=== PATIENT | male | born 1960 | race Caucasian/White ===

== ENCOUNTER 2018-12-29 05:52 | Observation (INO) | payer BC ==
[2018-12-29] MEDS ORDERED: NS 0.9% 1000 ML** 1,000 ML IV ONE (06:21)
[2018-12-29] MEDS ORDERED: Ketorolac INJ* 30 MG/ML 1 ML VIAL IV ONE (06:21)
[2018-12-29] MEDS ORDERED: Ondansetron INJ* 2 MG/ML VIAL IV ONE (06:21)
--- NOTE | 2018-12-29 06:25 | ED ---
GI/ HPI - HPI Summary HPI Summary: 58 year old M presenting to [facility] complains of rash, swelling, and erythema in his right groin extending to his right thigh and groin area with associated groin pain, fever, nausea and vomiting, mild abdominal pain since 24 hours ago. Patient denies diarrhea, dysuria. The patient rates the pain 8/10 in severity. Symptoms aggravated by nothing. Symptoms alleviated by nothing. Patient states he has Stage IV metastatic prostate cancer. - History of Current Complaint Chief Complaint: EDRashSkinAbscess Time Seen by Provider: 12/29/18 06:15 Stated Complaint: INFECTION PER PT Hx Obtained From: Patient Onset/Duration: Started Hours Ago - 24, Still Present Timing: Constant Severity: Severe Current Severity: Severe Pain Intensity: 8 Associated Signs and Symptoms: Positive: Negative - diarrhea, dysuria, Other: - groin pain, fever, nausea and vomiting, mild abdominal pain Aggravating Factor(s): Nothing Alleviating Factor(s): Nothing - Allergy/Home Medications Allergies/Adverse Reactions: Allergies Allergy/AdvReac Type Severity Reaction Status Date / Time No Known Allergies Allergy Verified 12/29/18 06:09 Home Medications: Home Medications Abiraterone Acetate 250 mg PO DAILY 12/29/18 [History Confirmed 12/29/18] Lisinopril 40 mg PO DAILY 12/29/18 [History Confirmed 12/29/18] amLODIPine TAB* [Norvasc 5 mg TAB*] 5 mg PO DAILY 12/29/18 [History Confirmed ] predniSONE [Prednisone 5 MG TAB] 5 mg PO DAILY 12/29/18 [History Confirmed 12/29] PMH/Surg Hx/FS Hx/Imm Hx Endocrine/Hematology History: Denies: Hx Diabetes Cardiovascular History: Reports: Hx Hypertension - ON MEDS Denies: Hx Pacemaker/ICD Respiratory History: Reports: Hx Asthma - childhood - none now Denies: Hx Chronic Bronchitis, Hx Chronic Obstructive Pulmonary Disease (COPD ), Hx Cystic Fibrosis, Hx Lung Cancer, Hx Pleural Effusion, Hx Pneumonia, Hx Pulmonary Edema, Hx Pulmonary Embolism, Hx Seasonal Allergies, Hx Sleep Apnea History: Denies: Hx Dialysis, Hx Renal Disease Musculoskeletal History: Reports: Hx Arthritis - thumbs, Hx Back Problems - currently, Hx Bursitis - in knee - resolved Sensory History: Reports: Hx Contacts or Glasses - contacts, Hx Vision Problem Denies: Hx Hearing Aid Opthamlomology History: Reports: Hx Contacts or Glasses - contacts, Hx Vision Problem Neurological History: Reports: Other Neuro Impairments/Disorders - admission for transient global amnesia Psychiatric History: Denies: Hx Panic Disorder - Cancer History Cancer Type, Location and Year: PROSTATE Hx Chemotherapy: No Hx Radiation Therapy: No - Surgical History Surgery Procedure, Year, and Place: Prostatectomy 02/2017 Hx Anesthesia Reactions: No - Immunization History Date of Tetanus Vaccine: Unk Date of Influenza Vaccine: Fall 2012 Infectious Disease History: No Infectious Disease History: Denies: Hx Tuberculosis, Traveled Outside the [place] in Last 30 Days - Family History Known Family History: Positive: Other - NEG: Fhx malignant anesthesia reaction - Social History Alcohol Use: Weekly Hx Substance Use: No Substance Use Type: Reports: None Hx Tobacco Use: Yes Smoking Status (MU): Former Smoker Type: Cigarettes Amount Used/How Often: 1 PPD Length of Time of Smoking/Using Tobacco: 20 Have You Smoked in the Last Year: No Review of Systems Positive: Fever Positive: Abdominal Pain, Vomiting, Nausea. Negative: Diarrhea Positive: pain - groin, other - swelling in his right groin. Negative: dysuria Positive: Rash, Other - erythema in his right groin All Other Systems Reviewed And Are Negative: Yes Physical Exam - Summary Physical Exam Summary: General: Well-developed, Well-nourished MALE. No acute distress. HEENT: Normocephalic, Atraumatic. Eyes: Conjuctiva normal, PERRL. Ears: TMs within normal limits. Nares: (-) discharge, (-) erythema. Oropharynx: Clear, mucous membranes moist, (-) exudates. Neck: Soft, FROM, (-) lymphadenopathy, (-) thyromegaly, (-) JVD. Cardiovascular: Normal sinus rhythm, (-) murmur. Lungs: Clear to auscultation bilaterally (-) wheezes, (-) rales, (-) rhonchi. Abdomen: Soft, non-tender, non-distended, (-) organomegaly, normal bowel sounds. Back: (-) CVA tenderness Extremities: No edema. Skin: Warm, dry, (-) rash. Neuro: Alert and oriented x3, no focal deficits. Psychiatric: Mood normal, affect normal. exam: Patient has erythematous, swollen area in R groin extending to his upper thigh and into his groin area Male Genitalia Exam: Normal external male genitalia, penis without discharge, normal appearing meatus, testes without tenderness, no mass. Triage Information Reviewed: Yes Vital Signs On Initial Exam: Initial Vitals Temp Pulse Resp BP Pulse Ox 99.5 F 101 18 145/94 97 12/29/18 05:53 12/29/18 05:53 12/29/18 05:53 12/29/18 05:53 12/29/18 05:53 Vital Signs Reviewed: Yes Diagnostics - Vital Signs Vital Signs Temp Pulse Resp BP Pulse Ox 12/29/18 05:53 99.5 F 101 18 145/94 97 - Laboratory Result Diagrams: 12/29/18 06:48 12/29/18 06:48 Lab Statement: Any lab studies that have been ordered have been reviewed, and results considered in the medical decision making process. GIGU Course/Dx - Course Course Of Treatment: 58 year old M presenting to [facility] complains of rash in his right groin extending to his right thigh and groin area with associated groin pain, fever, nausea and vomiting, mild abdominal pain since 24 hours ago. Patient denies diarrhea, dysuria. Physical exam findings: Patient has erythematous, swollen area in R groin extending to his upper thigh and into his groin area. In the ED course, the patient was given Toradol 15 mg IV, Zofran 4 mg IV, and normal saline fluids 1 L IV. The patient will be signed out to Dr. Diane upon shift change at 07:00 on 12/29/18, awaiting lab results and CT Abd/Pel , and pending disposition. - Diagnoses Provider Diagnoses: Cellulitis of groin Discharge ED - Sign-Out/Discharge Documenting (check all that apply): Sign-Out Patient Signing out patient TO: Wyatt iDane - awaiting lab results and CT Abd/Pel, and pending disposition Patient Received Moderate/Deep Sedation with Procedure: No - Discharge Plan Condition: Fair Disposition: ADMITTED TO [facility] - Billing Disposition and Condition Condition: FAIR Disposition: Admitted to [facility] - Attestation Statements Document Initiated by Scribe: Yes Documenting Scribe: Marilyn Woodruff Provider For Whom Scribe is Documenting (Include Credential): Jamila Silva MD Scribe Attestation: Marilyn Fox, scribed for Jamila Silva MD on 12/29/18 at 2142. Scribe Documentation Reviewed: Yes Provider Attestation: The documentation as recorded by the scribe, Marilyn Woodruff accurately reflects the service I personally performed and the decisions made by me, Jamila Sliva MD Status of Scribe Document: Viewed
[2018-12-29 07:02] LABS: ABS Lymphocytes 0.3 10^3/ul (1.0-4.8); ABS Monocytes 0.5 10^3/ul (0-0.8); ABS Neutrophils 13.9 10^3/ul (1.5-7.7); Eosinophil % 0.1 %; Hematocrit 33 % (42-52); Hemoglobin 11.3 g/dL (14.0-18.0); Lymphocyte % 2.3 %; Mean Corpuscular HGB Conc 35 g/dL (31-36); Mean Corpuscular Hemoglobin 32 pg (27-31); Mean Corpuscular Volume 92 fL (80-94); Mean Platelet Volume 8.3 fL (7.4-10.4); Nucleated Red Blood Cells % 0.1; Platelet Count 220 10^3/uL (150-450); Red Blood Count 3.55 10^6 /uL (4.18-5.48); Red Cell Distribution Width 14 % (10-15); White Blood Count 14.9 10^3/uL (3.5-10.8)
--- NOTE | 2018-12-29 07:06 | ED ---
Progress - Progress Note Progress Note: This patient is a 58-yo M with a hx of metastatic prostate cancer presenting to [facility] with rash of the right groin. Patient is a sign-out from Dr. Jamila Silva to Dr. Wyatt Diane at 0700 on 12/29/18 at shift change pending lab results and CT A/P. Patient reports going to bed on 12/27/18 and waking up with the sudden pain and rash on 12/28/18. Patient had a prostatectomy in 02/2017 in [place] for his prostate cancer. He also had radiation therapy and chemotherapy. The last radiation therapy was "a while ago" and the last chemotherapy was a year ago. For his chemotherapy treatment patient was given Lupron, Zytiga, and Prednisone. Patient does not use tobacco and substances but does use alcohol. He reports a PMHx of HTN but no DM. Physical Exam Findings VITAL SIGNS: Reviewed. GENERAL: Patient is a well-developed and nourished male who is lying comfortable in the stretcher. Patient is not in any acute respiratory distress. HEAD AND FACE: Normocephalic and atraumatic. EYES: PERRLA, EOMI x 2, No injected conjunctiva. EARS: Hearing grossly intact. Ear canals and tympanic membranes are WNL. MOUTH: Oropharynx within normal limits. NECK: Supple, trachea is midline, no adenopathy, no JVD. CHEST: Symmetric, no tenderness at palpation. LUNGS: Clear to auscultation bilaterally. No wheezing or crackles. CVS: RRR, S1 and S2 present, no murmurs or gallops appreciated. ABDOMEN: Soft, non-tender. No signs of distention. Positive bowel sounds. No rebound, no guarding, and no masses palpated. No abdominal bruit or pulsations. EXTREMITIES: FROM in all major joints, no edema, no cyanosis or clubbing. NEURO: Alert and oriented x 3. No acute neurological deficits. Speech is normal. SKIN: Dry and warm. : Diffuse erythema in the pelvic area, groin, foreskin, and skin on testicles. Light swelling in the right pelvis. - Results/Orders Results/Orders: CT A/P revealed Soft tissue and subcutaneous edema in the right inguinal region with mildly enlarged lymph nodes suspicious for cellulitis. No definite drainable fluid collections are noted. Normal appendix is identified. No other masses or fluid collections are noted. No definite evidence of external iliac vein thrombus is noted. Dr. Diane has reviewed this radiology report. Course/Dx - Course Course Of Treatment: This patient is a 58-yo M with a hx of metastatic prostate cancer presenting to [facility] with rash of the groin. Patient is a sign-out from Dr. Jamila Silva to Dr. Wyatt Diane at 0700 on 12/29/18 at shift change pending lab results and CT A/P. . This patient is a 58-year-old male signed out by Dr. Silva at shift change. She reports that the patient is complaining of swelling and redness in the groin area the right more than the left. Initially she gave normal saline total Zofran and I will follow work-up. I went and examined the patient and saw the patient has this erythematous area to the pelvic area bilaterally with a slight swelling in the right side and is tender. It extends to the skin of the penis and testicles. He has an uncircumcised penis. I started the patient on Zosyn. I added blood cultures before the antibiotics. Blood work without any significant abnormality except for WBCs of 14.9, hemoglobin 11.3, hematocrit 33, sodium 133, potassium 3.2, glucose 114, magnesium 1.7, CRP of 204. In the ED course the patient was given potassium chloride and magnesium. Abdominopelvic CT impression: Soft tissue and subcutaneous edema in the right inguinal region with mildly enlarged lymph nodes suspicious for cellulitis. No definite drainable fluid collection noted. Normal appendix is identified. No other mass of fluid collections are noted. No definite evidence of external iliac thrombosis noted. This patient continues to be stable. The patient proceeded to have IV fluids. At this point I discussed my physical exam findings and test results with Dr. Wheat who accepted the patient for admission. - Diagnoses Provider Diagnoses: Cellulitis of groin - Provider Notifications Discussed Care Of Patient With: Pasquale Wheat Time Discussed With Above Provider: 09:30 Instructed by Provider To: Admit As Inpatient - Discussed patient case with Dr. Wheat, oncologist, who accepted the patient for [place] [facility] Discharge ED - Sign-Out/Discharge Documenting (check all that apply): Patient Departure - Admit, Receiving Sign- Out Receiving patient FROM: Jamila Lemonley Patient Received Moderate/Deep Sedation with Procedure: No - Discharge Plan Condition: Fair Disposition: ADMITTED TO [facility] - Billing Disposition and Condition Condition: FAIR Disposition: Admitted to [facility] - Attestation Statements Document Initiated by Scribe: Yes Documenting Scribe: Oneil Vázquez Provider For Whom Scribe is Documenting (Include Credential): Wyatt Diane MD Scribe Attestation: I, Oneil Vázquez, scribed for Wyatt Diane MD on 12/30/18 at 1833. Scribe Documentation Reviewed: Yes Provider Attestation: The documentation as recorded by the scribe, Oneil Vázquez accurately reflects the service I personally performed and the decisions made by me, Wyatt Diane MD Status of Scribe Document: Viewed
[2018-12-29] MEDS ORDERED: Piperacillin/Tazobac ADVAN(*) 3.375 GM in NS 0.9% 100 ML* 100 ML IVPB ONE ×2 (07:23→10:07)
[2018-12-29 07:25] LABS: Albumin 3.7 g/dL (3.2-5.2); Albumin/Globulin Ratio 1.5 (1-3); BUN/Creatinine Ratio 14.6 (8-20); C Reactive Protein 204.21 mg/L (<8.01); Calcium 8.9 mg/dL (8.6-10.3); EGFR African American 106.6 (>60); EGFR Non-African American 88.1 (>60); Globulin 2.4 g/dL (2-4); Potassium 3.2 mmol/L (3.5-5.0); Total Bilirubin 0.6 mg/dL (0.2-1.0); Total Protein 6.1 g/dL (6.4-8.9)
[2018-12-29] MEDS ORDERED: Acetaminophen TAB* 325 MG PO ONE (07:41)
[2018-12-29] MEDS ORDERED: Iohexol 300* (CONTRAST) 10 ML SDV IV ONE ×2 (07:51→08:06)
[2018-12-29 08:20] LABS: Urine Appearance Clear; Urine Bacteria Absent (Absent); Urine Bilirubin Negative (Negative); Urine Blood Negative (Negative); Urine Color Yellow; Urine Glucose Negative (Negative); Urine Ketones Trace (Negative); Urine Nitrite Negative (Negative); Urine Protein 1+(30 mg/dL) (Negative); Urine Red Blood Cell Trace(0-2/hpf) (Absent); Urine Specific Gravity 1.017 (1.010-1.030); Urine Squamous Epithelial Cell Present (Absent); Urine Urobilinogen Negative (Negative); Urine White Blood Cell Trace(0-5/hpf) (Absent)
[2018-12-29] MEDS ORDERED: Potassium Chlor TAB* 20 MEQ TAB.ER PO ONE (08:27)
[2018-12-29 09:30] LABS: Magnesium 1.7 mg/dL (1.9-2.7)
[2018-12-29] MEDS ORDERED: Magnesium Oxide TAB* 400 MG PO ONE (09:33)
[2018-12-29] MEDS ORDERED: Ondansetron TAB* 4 MG PO PRN (10:09)
[2018-12-29] MEDS ORDERED: oxyCODONE TAB* 5 MG TAB PO PRN (10:09)
[2018-12-29] MEDS ORDERED: Zolpidem TAB* 10 MG PO PRN (10:10)
[2018-12-29] MEDS ORDERED: NS 0.9% 1000 ML** 1,000 ML IV SCH (10:15)
[2018-12-29] MEDS ORDERED: Zosyn per Pharmacy* NOTE FOLLOW UP SCH (11:00)
[2018-12-29] MEDS: ZOSYN 3.375 GM Q8H per EXTENDED INFUSION IVPB SCH ×4 (13:15→19:47)
[2018-12-29] MEDS: Enoxaparin(*) 40 MG/0.4 ML SYR SUBCUT SCH (13:16)
[2018-12-29] MEDS: Acetaminophen TAB* 325 MG PO PRN ×2 (13:26→19:47)
[2018-12-29] MEDS: Loperamide CAP* 2 MG PO PRN ×2 (15:30→19:22)
[2018-12-29] MEDS ORDERED: predniSONE TAB* 5 MG PO SCH (18:30)
[2018-12-29] MEDS ORDERED: Melatonin 3 MG TAB PO PRN (20:27)
[2018-12-30] MEDS: Loperamide CAP* 2 MG PO PRN ×4 (03:27→19:54)
[2018-12-30] MEDS: ZOSYN 3.375 GM Q8H per EXTENDED INFUSION IVPB SCH ×6 (03:31→19:48)
[2018-12-30 06:23] LABS: ABS Lymphocytes 0.3 10^3/ul (1.0-4.8); ABS Monocytes 0.4 10^3/ul (0-0.8); ABS Neutrophils 7.5 10^3/ul (1.5-7.7); Eosinophil % 0.6 %; Hematocrit 29 % (42-52); Hemoglobin 9.9 g/dL (14.0-18.0); Lymphocyte % 4.1 %; Mean Corpuscular HGB Conc 34 g/dL (31-36); Mean Corpuscular Hemoglobin 31 pg (27-31); Mean Corpuscular Volume 92 fL (80-94); Mean Platelet Volume 8.4 fL (7.4-10.4); Platelet Count 182 10^3/uL (150-450); Red Blood Count 3.17 10^6 /uL (4.18-5.48); Red Cell Distribution Width 14 % (10-15); White Blood Count 8.3 10^3/uL (3.5-10.8)
[2018-12-30 06:37] LABS: Albumin 3.1 g/dL (3.2-5.2); Anion Gap 6 mmol/L (2-11); BUN/Creatinine Ratio 13.4 (8-20); Blood Urea Nitrogen 11 mg/dL (6-24); CO2 Carbon Dioxide 24 mmol/L (22-32); Calcium 8.6 mg/dL (8.6-10.3); Chloride 108 mmol/L (101-111); EGFR African American 117.2 (>60); EGFR Non-African American 96.8 (>60); Globulin 2.4 g/dL (2-4); Glucose 105 mg/dL (70-100); Magnesium 1.9 mg/dL (1.9-2.7); Potassium 3.4 mmol/L (3.5-5.0); Sodium 138 mmol/L (135-145); Total Protein 5.5 g/dL (6.4-8.9)
[2018-12-30 06:38] LABS: ALT 13 U/L (7-52); AST 17 U/L (13-39); Albumin/Globulin Ratio 1.3 (1-3); Alkaline Phosphatase 63 U/L (34-104)
[2018-12-30] MEDS: predniSONE TAB* 5 MG PO SCH ×2 (08:04→17:01)
[2018-12-30 08:58] LABS: Total Iron Binding Capacity 272 mcg/dL (250-450); Transferrin 194 mg/dL (203-362)
[2018-12-30] MEDS ORDERED: amLODIPine TAB* 5 MG PO SCH (09:00)
[2018-12-30 09:01] LABS: % Iron Saturation 7 % (15-55); Iron < 20 ug/dL (50-212)
[2018-12-30 09:19] LABS: Ferritin 260.9 ng/mL (24-336)
[2018-12-30] MEDS ORDERED: NS 0.9% 1000 ML** 1,000 ML IV SCH (09:33)
--- NOTE | 2018-12-30 09:33 | PN ---
Progress Note - Progress Note Date of Service: 12/30/18 SOAP: Subjective: [Feeling slightly better today and believes the area is less red. He still has a lot of discomfort with walking. Appetite is slowly returning. Having diarrhea and feels bloated. Denies nausea. No melena.] Objective: [ Vital Signs: Temp Pulse Resp BP Pulse Ox 99.3 F 81 16 137/76 97 12/30/18 07:25 12/30/18 07:25 12/30/18 08:03 12/30/18 07:25 12/30/18 07:25 Abiraterone Acetate (Zytiga (Nf)) 250 mg PO DAILY@1100 [facility] Acetaminophen (Tylenol Tab*) 650 mg PO Q6H PRN PRN Reason: MILD PAIN or TEMP > 100.4 Last Admin: 12/29/18 19:47 Dose: 650 mg Amlodipine Besylate (Norvasc Tab*) 5 mg PO DAILY [facility] Last Admin: 12/30/18 08:46 Dose: Not Given Enoxaparin Sodium (Lovenox(*)) 40 mg SUBCUT Q24H [facility] Last Admin: 12/29/18 13:16 Dose: 40 mg Sodium Chloride (Ns 0.9% 1000 Ml) 1,000 mls @ 100 mls/hr IV PER RATE [facility] Last Admin: 12/29/18 13:15 Dose: 100 mls/hr Piperacillin Sod/Tazobactam (Sod 3.375 gm/ Sodium Chloride) 100 mls @ 25 mls/ hr IVPB Q8H [facility] Last Admin: 12/30/18 03:31 Dose: 25 mls/hr Loperamide HCl (Imodium Cap*) 2 mg PO .SEE DIRECTIONS PRN PRN Reason: DIARRHEA Last Admin: 12/30/18 08:03 Dose: 2 mg Melatonin (Melatonin) 3 mg PO BEDTIME PRN PRN Reason: SLEEP Ondansetron HCl (Zofran Tab*) 4 mg PO Q6H PRN PRN Reason: NAUSEA Oxycodone HCl (Roxycodone Tab*) 5 mg PO Q4H PRN PRN Reason: PAIN - MODERATE Pharmacy Consult (Zosyn Per Pharmacy*) 1 note FOLLOW UP .ZOSYN PER PHARMACY [facility] Prednisone (Deltasone Tab*) 5 mg PO BID WITH MEALS [facility] Last Admin: 12/30/18 08:04 Dose: 5 mg Zolpidem Tartrate (Ambien Tab*) 10 mg PO BEDTIME PRN PRN Reason: INSOMNIA Laboratory Results - last 24 hr 12/30/18 12/30/18 05:53 05:53 WBC 8.3 RBC 3.17 L Hgb 9.9 L Hct 29 L MCV 92 MCH 31 MCHC 34 RDW 14 Plt Count 182 MPV 8.4 Neut % (Auto) 90.7 Lymph % (Auto) 4.1 [place] % (Auto) 4.4 Eos % (Auto) 0.6 Baso % (Auto) 0.2 Absolute Neuts (auto) 7.5 Absolute Lymphs (auto) 0.3 L Absolute Monos (auto) 0.4 Absolute Eos (auto) 0.0 Absolute Basos (auto) 0.0 Absolute Nucleated RBC 0.0 Nucleated RBC % 0.0 Sodium 138 Potassium 3.4 L Chloride 108 Carbon Dioxide 24 Anion Gap 6 BUN 11 Creatinine 0.82 Est GFR ( Amer) 117.2 Est GFR (Non-Af Amer) 96.8 BUN/Creatinine Ratio 13.4 Glucose 105 H Calcium 8.6 Magnesium 1.9 Iron < 20 L TIBC 272 % Saturation 7 L Unsat Iron Binding < 257 Transferrin 194 L Ferritin 260.9 Total Bilirubin 0.40 AST 17 ALT 13 Alkaline Phosphatase 63 Total Protein 5.5 L Albumin 3.1 L Globulin 2.4 Albumin/Globulin Ratio 1.3 Vitamin B12 257 Exam: Gen: relatively well appearing 58 yo in NAD HEENT: MMM Resp: CTA, no w/c/r Abd: slightly distended with hyperactive BS and somewhat diffusely TTP, skin in the R inguinal region is very edematous and erythematous and TTP, no erythema or edema of the scrotal sac, no open/draining regions Ext: no edema] Assessment: [This is a 58 yo male with prostate CA (currently ANATOLY) on abiraterone who presented with a severe R inguinal cellulitis, no evidence of abscess or hematoma on CT, no scrotal involvement. Blood cultures negative.] Plan: [1. Cellulitis - symptomatically improved today with normalization of WBCs and afebrile overnight - due to the extend of edema and tissue involvement will cont with IV abx for an additional 24h 2. Prostate CA - ANATOLY, cont abiraterone/prednisone 3. Anemia - noted drop in Hgb to 9.9 g/dl which may be dilutional from fluid bolus - he has a history of mild chronic anemia which appears to pre-date his pelvic radiation - check iron/B12 studies Dispo: anticipate dc home tomorrow]
[2018-12-30] MEDS ORDERED: ABIRATERONE 250 MG PO SCH (11:00)
[2018-12-30] MEDS: Enoxaparin(*) 40 MG/0.4 ML SYR SUBCUT SCH (13:32)
[2018-12-30] MEDS: amLODIPine TAB* 5 MG PO SCH (17:00)
[2018-12-31] MEDS: ZOSYN 3.375 GM Q8H per EXTENDED INFUSION IVPB SCH ×2 (04:30)
[2018-12-31 06:26] LABS: ABS Eosinophils 0.1 10^3/ul (0-0.6); ABS Lymphocytes 0.6 10^3/ul (1.0-4.8); ABS Monocytes 0.4 10^3/ul (0-0.8); ABS Neutrophils 4.6 10^3/ul (1.5-7.7); Eosinophil % 2.4 %; Hematocrit 29 % (42-52); Hemoglobin 10.1 g/dL (14.0-18.0); Lymphocyte % 10.8 %; Mean Corpuscular HGB Conc 35 g/dL (31-36); Mean Corpuscular Hemoglobin 32 pg (27-31); Mean Corpuscular Volume 93 fL (80-94); Mean Platelet Volume 8.3 fL (7.4-10.4); Platelet Count 195 10^3/uL (150-450); Red Blood Count 3.14 10^6 /uL (4.18-5.48); Red Cell Distribution Width 14 % (10-15); White Blood Count 5.8 10^3/uL (3.5-10.8)
[2018-12-31 06:42] LABS: Albumin 3.1 g/dL (3.2-5.2); Albumin/Globulin Ratio 1.2 (1-3); BUN/Creatinine Ratio 11.5 (8-20); Calcium 8.8 mg/dL (8.6-10.3); EGFR African American 124.1 (>60); EGFR Non-African American 102.6 (>60); Globulin 2.5 g/dL (2-4); Potassium 3.6 mmol/L (3.5-5.0); Total Bilirubin 0.3 mg/dL (0.2-1.0); Total Protein 5.6 g/dL (6.4-8.9)
[2018-12-31] MEDS: predniSONE TAB* 5 MG PO SCH (08:15)
[2018-12-31 08:30] VITALS: BP 146/98
[2018-12-31] MEDS ORDERED: Lisinopril TAB* 10 MG PO SCH (09:00)
[2018-12-31] MEDS: amLODIPine TAB* 5 MG PO SCH ×2 (09:33→09:40)
[2018-12-31] MEDS ORDERED: ABIRATERONE 250 MG PO SCH (11:00)
--- NOTE | 2018-12-31 11:28 | DS ---
CC: Dr. Rico; Dr. Vanessa Torre * DISCHARGE SUMMARY: DATE OF ADMISSION: 12/29/18 DATE OF DISCHARGE: 12/31/18 PRIMARY CARE PROVIDER: Dr. Rico. PRIMARY ONCOLOGIST: Dr. Vanessa Torre. DISCHARGING PROVIDER: AYAZ Deluca. ATTENDING PROVIDER: Dr. Vanessa Torre * (DICTATED BY AYAZ DELUCA) PRIMARY DISCHARGE DIAGNOSES: 1. Right groin cellulitis. 2. Prostate cancer, currently with no evidence of disease. 3. Anemia. DISCHARGE MEDICATIONS: 1. Amiodarone 1000 mg p.o. daily. 2. Amlodipine 5 mg p.o. daily. 3. Lisinopril 40 mg p.o. daily. 4. Propranolol 10 mg p.o. daily. 5. Ambien 10 mg p.o. daily. 6. Keflex 500 mg p.o. 4 times daily x7 days. 7. Prednisone 5 mg p.o. twice daily. HOSPITAL IMAGING: CT abdomen and pelvis on 12/29/18 shows soft tissue and subcutaneous edema in the right inguinal region with mildly enlarged lymph nodes suspicious for cellulitis. No definite drainable fluid collections are noted. Normal appendix. No other masses or fluid collections are noted. HOSPITAL COURSE: This is a 58-year-old gentleman with prostate cancer, followed by Dr. Vanessa Torre, currently with an undetectable PSA, who presented to the emergency department with right groin pain and fever. He awoke 2 days prior to presentation with pain in the groin and had some chills the day prior. He noted redness in the region and fever to 101.5 at home. He noted no open areas or other recent wounds in the region. Generally active running and with regular workout at the gym. Initial labs demonstrated leukocytosis with a white blood cell count of 14,900 and significantly elevated CRP to 204. He was not febrile in the emergency department with a maximum temperature of 99.5 degrees Fahrenheit, but was mildly tachycardic with a pulse of 101, but hypertensive and no associated hypoxia. The patient was subsequently admitted for IV antibiotics and received Zosyn. He had a CT completed in the emergency department, which was consistent with cellulitis without an associated abscess or hematoma. The patient had no evidence of scrotal edema or erythema. The patient remained afebrile throughout his hospitalization and slowly improved the degree of erythema and associated discomfort improved with the use of IV antibiotics. There were no other complicating factors during this hospitalization. DISPOSITION AND FOLLOWUP PLAN: The patient is being discharged to home in stable condition where he lives with a teenage child. He is given instructions to complete an additional 7 days of Keflex for the cellulitis and call with any worsening signs of infection. He has followup with Dr. Torre established for 01/14/19, which will be shortly after completing his antibiotics. AYAZ DELUCA [id number]/[facility] #: [id number] TETO
== END 2018-12-31 11:00 | disposition home or self-care (01) ==
LOC: ED 05:52 → MED 10:03
PROVIDERS: ADMIT Internal Medicine; ATTEND Internal Medicine Hematology & Oncology
DX: L03.314 Cellulitis of groin (principal); C61 Malignant neoplasm of prostate; D64.9 Anemia, unspecified; Z79.899 Other long term (current) drug therapy; I10 Essential (primary) hypertension
CPT/HCPCS: 36415; 74177; 80053; 81003; 81015; 82607; 82728; 83540; 83550; 83605; 83735; 85025; 86140; 87040; 87086; 96365; 96366; 96372; 96375; 99217; 99219; 99225; 99284; A9270-GY; G0378; J1650; J1885; J2405; J2543; J7512; Q9967